=== PATIENT | female | born 1980 | race Hispanic/Latino ===

== ENCOUNTER 2018-10-02 10:17 | Emergency (ER) | payer BC, SELFPAY ==
--- NOTE | 2018-10-02 11:23 | EDPHYS ---
Physician Documentation [facility] Name: Gracie Kinney Age: 38 yrs Sex: Female : 1980 Arrival Date: 10/02/2018 Time: 10:20 Bed Treatment Private MD: Jenn Weber ED Physician Melyssa Myrick HPI: 10/02 11:20 This 38 yrs old Female presents to ER via Ambulatory with complaints of ma2 Abscess. 11:20 The patient presents with cellulitis of the buttocks. Onset: The symptoms/episode ma2 began/occurred gradually, 2 day(s) ago. Associated signs and symptoms: Pertinent negatives: erythema, fever, nausea, swelling, vomiting. Severity of symptoms: At their worst the symptoms were mild, in the emergency department the symptoms are unchanged. The patient has not experienced similar symptoms in the past. 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 - Social history:: Smoking status: Patient/guardian denies using tobacco, Patient/guardian denies using alcohol, street drugs, The patient lives with family. - Ebola Screening: : Patient denies exposure to infectious person Patient denies travel to an Ebola-affected area in the 21 days before illness onset. - Family history:: not pertinent, pertinent for. ROS: 11:20 Constitutional: Negative for fever, chills, and weight loss, Cardiovascular: Negative ma2 for chest pain, palpitations, and edema, Respiratory: Negative for shortness of breath, cough, wheezing, and pleuritic chest pain. 11:20 Skin: Positive for erythema, Negative for burn, diaphoresis, swelling. 11:20 All other systems are negative. Exam: 11:20 Constitutional: This is a well developed, well nourished patient who is awake, alert, ma2 and in no acute distress. 11:20 Chest/axilla: Normal chest wall appearance and motion. Nontender with no deformity. No lesions are appreciated. Cardiovascular: Regular rate and rhythm with a normal S1 and S2. No gallops, murmurs, or rubs. Normal PMI, no JVD. No pulse deficits. Respiratory: Lungs have equal breath sounds bilaterally, clear to auscultation and percussion. No rales, rhonchi or wheezes noted. No increased work of breathing, no retractions or nasal flaring. Abdomen/GI: Soft, non-tender, with normal bowel sounds. No distension or tympany. No guarding or rebound. No evidence of tenderness throughout. MS/ Extremity: Pulses equal, no cyanosis. Neurovascular intact. Full, normal range of motion. 11:20 Skin: cellulitis, that is moderate. Vital Signs: 10:47 BP 123 / 69; Pulse 75; Resp 15; Temp 97.6(TE); Pulse Ox 100% on R/A; Weight 74.84 kg; ss Height 5 ft. 3 in. (160.02 cm); Pain 5/10; 10:47 Body Mass Index 29.23 (74.84 kg, 160.02 cm) ss MDM: 11:08 Patient medically screened. ma2 11:20 Differential diagnosis: cellulitis, insect bite. Data reviewed: vital signs, nurses ma2 notes. Counseling: I had a detailed discussion with the patient and/or guardian regarding: the historical points, exam findings, and any diagnostic results supporting the discharge/admit diagnosis, the presence of at least one elevated blood pressure reading (>120/80) during this emergency department visit, the need for outpatient follow up. Response to treatment: the patient's symptoms have mildly improved after treatment. Administered Medications: No medications were administered Disposition: 10/02/18 11:22 Discharged to Home. Impression: Cellulitis of buttock. - Condition is Stable. - Discharge Instructions: Cellulitis, Adult. - Prescriptions for Clindamycin HCl 300 mg Oral Capsule - take 1 capsule by ORAL route every 6 hours for 10 days; 40 capsule. Bactrim DS 800- 160 mg Oral Tablet - take 1 tablet by ORAL route every 12 hours for 10 days; 20 tablet. - Medication Reconciliation Form, Thank You Letter, Antibiotic Education, Prescription Opioid Use form. - Follow up: Private Physician; When: Tomorrow; Reason: Continuance of care. Signatures: Cynthia Butts RN RN Melyssa Myrick MD MD ma2 Corrections: (The following items were deleted from the chart) 11:41 11:22 10/02/2018 11:22 Discharged to Home. Impression: Cellulitis of buttock. Condition ss is Stable. Forms are Medication Reconciliation Form, Thank You Letter, Antibiotic Education, Prescription Opioid Use. Follow up: Private Physician; When: Tomorrow; Reason: Continuance of care. ma2
--- NOTE | 2018-10-02 11:23 | ER ---
Nurse's Notes [facility] Name: Gracie Kinney Age: 38 yrs Sex: Female : 1980 Arrival Date: 10/02/2018 Time: 10:20 Bed Treatment Private MD: Jenn Weber Diagnosis: Cellulitis of buttock Presentation: 10/02 10:46 Presenting complaint: Patient states: abscess to coccyx area that began 2-3 days ago. ss Pt also c/o pain to L groin that began last night. Transition of care: patient was not received from another setting of care. Onset of symptoms was September 30, 2018. Risk Assessment: Do you want to hurt yourself or someone else? Patient reports no desire to harm self or others. Initial Sepsis Screen: Does the patient meet any 2 criteria? No. Patient's initial sepsis screen is negative. Does the patient have a suspected source of infection? No. Patient's initial sepsis screen is negative. Care prior to arrival: None. 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 - Social history:: Smoking status: Patient/guardian denies using tobacco, Patient/guardian denies using alcohol, street drugs, The patient lives with family. - Ebola Screening: : Patient denies exposure to infectious person Patient denies travel to an Ebola-affected area in the 21 days before illness onset. - Family history:: not pertinent, pertinent for. Screenin:09 Abuse screen: Denies threats or abuse. Denies injuries from another. Nutritional ss screening: No deficits noted. Tuberculosis screening: Never had TB. Fall Risk None identified. Vital Signs: 10:47 BP 123 / 69; Pulse 75; Resp 15; Temp 97.6(TE); Pulse Ox 100% on R/A; Weight 74.84 kg; ss Height 5 ft. 3 in. (160.02 cm); Pain 5/10; 10:47 Body Mass Index 29.23 (74.84 kg, 160.02 cm) ED Course: 10:20 Patient arrived in ED. mr 10:21 Jenn Weber MD is Private Physician. mr 10:47 Triage completed. ss 10:47 Arm band placed on left wrist. ss 11:07 Melyssa Myrick MD is Attending Physician. ma2 11:09 Cynthia Butts, JUAN is Primary Nurse. ss 11:09 Patient has correct armband on for positive identification. Bed in low position. Call ss light in reach. 11:40 No provider procedures requiring assistance completed. Patient did not have IV access ss during this emergency room visit. Administered Medications: No medications were administered Outcome: 11:22 Discharge ordered by . ma2 11:40 Discharged to home ambulatory, with friend. ss 11:40 Condition: good 11:40 Discharge instructions given to patient, family, Instructed on discharge instructions, follow up and referral plans. medication usage, Demonstrated understanding of instructions, follow-up care, medications, Prescriptions given X 2. 11:41 Patient left the ED. Signatures: Angeles Rowan mr Cynthia Butts, RN RN Melyssa Myrick MD MD ma2
[2018-10-02 11:48] VITALS: BP 123/69; TEMP 97.6; O2SAT 100
== END 2018-10-02 11:41 | disposition home or self-care (01) ==
LOC: ER 10:17
DX: L03.317 Cellulitis of buttock (principal)
CPT/HCPCS: 99282

== ENCOUNTER 2018-12-22 18:52 | Emergency (ER) | payer SELFPAY ==
--- OUTSIDE RECORDS SUMMARY | 2018-12-22 18:54 | XMS REPORT ---
:1980 Author Organization eClinicalWorks Care Team Providers Name Role Phone Gus Jenn Provider Role Unavailable Allergies, Adverse Reactions, Alerts Substance Reaction Event Type N.K.D.A. Info Not Available Non Drug Allergy Problems Problem Type Condition Code Onset Dates Condition Status Problem Migraine G43.909 Active Problem Acute left ankle pain M25.572 Active Problem Vitamin D deficiency E55.9 Active Problem Dizziness R42 Active Problem Family history of diabetes mellitus Z83.3 Active Problem Dysuria R30.0 Active Problem Pain in left knee M25.562 Active Problem Left foot pain M79.672 Active Problem Vaginal burning N94.9 Active Problem Other chronic pain G89.29 Active Assessment Family history of diabetes mellitus Z83.3 Active Assessment Dizziness R42 Active Assessment Normal breast exam Z00.00 Active Assessment Routine gynecological examination Z01.419 Active Assessment Dysuria R30.0 Active Assessment Vaginal burning N94.9 Active Problem Cholelithiasis and acute K80.01 Active cholecystitis with obstruction Medications Medication Code Code Instructions Start End Date Status Dosage System Date Diflucan [facility] 44725747871 150 MG Orally June Active as directed tablet once 2018 daily Fluconazole [facility] 64191665140 150 MG Orally Active 1 tablet Amoxicillin-Pot [facility] 94255274268 500-125 MG Active 1 tablet Clavulanate Orally Twice a day x10 days Results Name Result Date Reference Range Unit Abnormality Flag Urine Dip Stick ----Nitrite Negative 20180628 ----Leukocytes Negative 20180628 ----Glucose Negative 20180628 ----Ketone Negative 20180628 ----pH 6.0 20180628 ----SP. Gr 1.010 20180628 ----Appearance Clear [id number] ----Blood Negative 20180628 ----Protein Negative 20180628 HEMOGLOBIN A1C ----A1C 5.5 20180628 GLUCOSE FINGER ----Result 73--RBS [id number] Summary Purpose eClinicalWorks Submission
--- OUTSIDE RECORDS SUMMARY | 2018-12-22 18:54 | XMS REPORT ---
:1980 Author Organization eClinicalWorks Care Team Providers Name Role Phone Jenn Weber Provider Role Unavailable Allergies, Adverse Reactions, Alerts Substance Reaction Event Type N.K.D.A. Info Not Available Non Drug Allergy Problems Problem Type Condition Code Onset Dates Condition Status Problem Cholelithiasis and acute K80.01 Active cholecystitis with obstruction Assessment Well adult exam Z00.00 Active Problem Migraine G43.909 Active Medications Medication Code Code Instructions Start End Status Dosage System Date Date Fluconazole [facility] 50905383630 150 MG Orally Active 1 tablet Amoxicillin-Pot ND 32673061215 500-125 MG Active 1 tablet Clavulanate Orally Twice a day x10 days Results No Known Results Summary Purpose eClinicalWorks Submission
--- OUTSIDE RECORDS SUMMARY | 2018-12-22 18:54 | XMS REPORT ---
:1980 Author Organization eClinicalWorks Care Team Providers Name Role Phone Jenn Weber Provider Role Unavailable Allergies No Known Allergies Problems Problem Type Condition Code Onset Dates Condition Status Problem Migraine G43.909 Active Problem Cholelithiasis and acute K80.01 Active cholecystitis with obstruction Problem Vitamin D deficiency E55.9 Active Assessment Vitamin D deficiency E55.9 Active Medications Medication Code Code Instructions Start End Status Dosage System Date Date Vitamin D [facility] [id number] UNIT September 05, Dec 04, Active 1 capsule (Ergocalcifero Orally Once 2017 2018 l) weekly Results No Known Results Summary Purpose eClinicalWorks Submission
[2018-12-22] MEDS ORDERED: NA CHLORIDE 0.9% 1,000 ML ONE (19:18)
[2018-12-22 19:43] LABS: Absolute Lymphocytes (CBC) 2.3 K/uL (0.7-4.9); Basophils % 2.7 % (0-1.3); Lymphocytes % 24.9 % (15.3-44.8); MPV 10.3 fL (7.6-11.3); RBC Red Blood Cell Count 4.81 M/uL (3.86-4.86)
[2018-12-22 19:59] LABS: Bilirubin Direct 0.1 mg/dL (0-0.2); Bilirubin Total 0.4 mg/dL (0.2-1.0); Potassium 3.6 mmol/L (3.5-5.1); Protein, Total 7.4 g/dL (6.4-8.2)
--- NOTE | 2018-12-22 20:30 | RAD REPORT ---
EXAM DESCRIPTION: CT - Abdomen Pelvis W Contrast - 12/22/2018 8:14 pm CLINICAL HISTORY: Abdominal pain rectal bleeding COMPARISON: none. TECHNIQUE: Computed axial tomography of the abdomen pelvis was obtained. 100 cc Isovue-300 was admin istered intravenously. Oral contrast was not requested which limits evaluation of bowel. All CT scans are performed using dose optimization technique as appropriate and may include automated exposure control or mA/KV adjustment according to patient size. FINDINGS: Cholecystectomy The liver, spleen, pancreas, adrenal and kidneys appear unremarkable. There is no evidence of diverticulitis. A tampon is present within the vagina IMPRESSION: No acute abnormality is displayed.
--- NOTE | 2018-12-22 20:48 | ER ---
Nurse's Notes [facility] Name: Gracie Kinney Age: 38 yrs Sex: Female : 1980 Arrival Date: 12/22/2018 Time: 18:55 Bed 2 Private MD: Diagnosis: Diarrhea, unspecified Presentation: 12/22 19:05 Presenting complaint: Patient states: Reports diarrhea for the past 2 to 3 days, today ea she stated having bright red loose stools, dizziness and nausea. Transition of care: patient was not received from another setting of care. Onset of symptoms was December 22, 2018. Risk Assessment: Do you want to hurt yourself or someone else? Patient reports no desire to harm self or others. Initial Sepsis Screen: Does the patient meet any 2 criteria? No. Patient's initial sepsis screen is negative. Does the patient have a suspected source of infection? No. Patient's initial sepsis screen is negative. Care prior to arrival: Mucinex this AM. 19:05 Method Of Arrival: Ambulatory ea 19:05 Acuity: FLASH 3 ea Triage Assessment: 19:08 General: Appears uncomfortable, Behavior is calm, cooperative, appropriate for age. ea Pain: Denies pain. GI: Reports diarrhea. 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 - Social history:: Smoking status: Patient/guardian denies using tobacco. - Ebola Screening: : No symptoms or risks identified at this time. Screenin:06 Abuse screen: Denies threats or abuse. Nutritional screening: No deficits noted. ea Tuberculosis screening: No symptoms or risk factors identified. Fall Risk None identified. Assessment: 19:24 General: Appears in no apparent distress. Behavior is calm, cooperative, appropriate tl1 for age. Pain:. Neuro: Level of Consciousness is awake, alert, obeys commands, Oriented to person, place, time, situation. Cardiovascular: Denies chest pain. Respiratory: Airway is patent Trachea midline Respiratory effort is even, unlabored, Breath sounds are clear bilaterally. GI: Abdomen is non-distended, Bowel sounds present X 4 quads. Abd is soft and non tender X 4 quads. Reports diarrhea, nausea. : No signs and/or symptoms were reported regarding the genitourinary system. EENT: No signs and/or symptoms were reported regarding the EENT system. Derm: No signs and/or symptoms reported regarding the dermatologic system. 20:05 Reassessment: Patient appears in no apparent distress at this time. Patient is alert, rr5 oriented x 3, equal unlabored respirations, skin warm/dry/pink. send for CT scan assisted by CT staff. 21:06 Reassessment: Patient and/or family updated on plan of care and expected duration. Pain tl1 level reassessed. Patient is alert, oriented x 3, equal unlabored respirations, skin warm/dry/pink. GI: Abdomen is non-distended, Bowel sounds present X 4 quads. Abd is soft and non tender X 4 quads. Vital Signs: 19:07 BP 118 / 81; Pulse 93; Resp 16; Temp 97.6; Pulse Ox 99% ; Weight 74.84 kg; Height 5 ft. ea 2 in. (157.48 cm); Pain 0/10; 20:48 BP 102 / 78; Pulse 86; Resp 16; Pulse Ox 100% ; lt1 19:07 Body Mass Index 30.18 (74.84 kg, 157.48 cm) ea ED Course: 18:55 Patient arrived in ED. rg4 19:06 Triage completed. ea 19:06 Arm band placed on right wrist. Patient placed in an exam room, on a stretcher. ea 19:06 Patient has correct armband on for positive identification. Patient has correct armband tl1 on for positive identification. Placed in gown. Bed in low position. Call light in reach. Side rails up X 1. 19:12 Daron Granda PA is PHCP. sandy 19:12 Joe Lozada MD is Attending Physician. sandy 19:13 Molina Oliva, JUAN is Primary Nurse. rr5 19:26 Initial lab(s) drawn, by me, sent to lab. Inserted saline lock: 20 gauge in right lt1 antecubital area, using aseptic technique. 19:50 Radiology exam delayed due to lab results not completed at this time. (BUN/Creatinine). bq 20:22 CT completed. Patient tolerated procedure well. Patient moved back from CT. bq 20:46 Kelsea Salvador MD is Referral Physician. [facility] 21:07 No provider procedures requiring assistance completed. IV discontinued, intact, tl1 bleeding controlled, No redness/swelling at site. Pressure dressing applied. Administered Medications: 19:20 Drug: NS 0.9% 1000 ml Route: IV; Rate: 1 bolus; Site: right antecubital; tl1 21:00 Follow up: IV Status: Completed infusion; IV Intake: 1000ml tl1 Intake: 21:00 IV: 1000ml; Total: 1000ml. tl1 Outcome: 20:47 Discharge ordered by MD. [facility] 21:06 Discharged to home ambulatory, with family. tl1 21:06 Condition: good 21:06 Discharge instructions given to patient, family, Instructed on discharge instructions, follow up and referral plans. medication usage, Demonstrated understanding of instructions, follow-up care, medications, Prescriptions given X 2. 21:09 Patient left the ED. tl1 Signatures: Daron Granda PA PA [facility] Anyi Zhang Pastora Mccray, RN RN tl1 Aisha Carey rg4 Bhargavi Grace RN RN Molina Hui RN RN rr5 Chani Cruz lt1
--- NOTE | 2018-12-22 20:49 | EDPHYS ---
Physician Documentation [facility] Name: Gracie Kinney Age: 38 yrs Sex: Female : 1980 Arrival Date: 12/22/2018 Time: 18:55 Bed 2 Private MD: ED Physician Joe Lozada HPI: 12/22 19:13 This 38 yrs old Female presents to ER via Ambulatory with complaints of Bloody jmm Stools. 19:13 The patient presents to the emergency department with nausea, diarrhea. Onset: The jmm symptoms/episode began/occurred gradually, 2 day(s) ago. Possible causes: unknown. The symptoms are aggravated by nothing. The symptoms are alleviated by nothing. Associated signs and symptoms: Pertinent negatives: fever. This is a 38 year old female with no chronic medical conditions that presents to the ED with complaints of 2 days of diarrhea today with bloody stools today. Patient states previous history of hemorrhoids. Currently denies abdominal pain. Patient states recently having cough and congestion which is now resolved. . 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 - Social history:: Smoking status: Patient/guardian denies using tobacco. - Ebola Screening: : No symptoms or risks identified at this time. ROS: 19:13 Constitutional: Negative for fever, chills, and weight loss, Cardiovascular: Negative jmm for chest pain, palpitations, and edema, Respiratory: Negative for shortness of breath, cough, wheezing, and pleuritic chest pain. 19:13 Back: Negative for injury and pain, MS/Extremity: Negative for injury and deformity. 19:13 Abdomen/GI: Positive for diarrhea, rectal pain. 19:13 Neuro: Positive for weakness. 19:13 All other systems are negative. Exam: 19:13 Constitutional: This is a well developed, well nourished patient who is awake, alert, jmm and in no acute distress. Head/Face: atraumatic. Eyes: EOMI, no conjunctival erythema appreciated ENT: Moist Mucus Membranes Neck: Trachea midline, Supple Chest/axilla: Normal chest wall appearance and motion. Cardiovascular: Regular rate and rhythm. No edema appreciated Respiratory: Normal respirations, no respiratory distress appreciated 19:13 Back: Normal ROM Skin: General appearance color normal MS/ Extremity: Moves all extremities, no obvious deformities appreciated, no edema noted to the lower extremities Neuro: Awake and alert, normal gait Psych: Behavior is normal, Mood is normal, Patient is cooperative and pleasant 19:13 Abdomen/GI: Inspection: abdomen appears normal, Bowel sounds: normal, Palpation: abdomen is soft and non-tender, in all quadrants. Vital Signs: 19:07 BP 118 / 81; Pulse 93; Resp 16; Temp 97.6; Pulse Ox 99% ; Weight 74.84 kg; Height 5 ft. ea 2 in. (157.48 cm); Pain 0/10; 20:48 BP 102 / 78; Pulse 86; Resp 16; Pulse Ox 100% ; lt1 19:07 Body Mass Index 30.18 (74.84 kg, 157.48 cm) ea MDM: 19:13 Patient medically screened. [facility] 20:43 Data reviewed: vital signs, nurses notes. Counseling: I had a detailed discussion with sandy the patient and/or guardian regarding: the historical points, exam findings, and any diagnostic results supporting the discharge/admit diagnosis, lab results, radiology results, the need for outpatient follow up, to return to the emergency department if symptoms worsen or persist or if there are any questions or concerns that arise at home. ED course: Patient is alert and non toxic in appearance. Abdomen is soft. CT imaging is negative. Patient is advised to follow up with GI and otherwise given strict return precautions. Patient understood and agrees with the plan of care. . 12/22 19:13 Order name: Basic Metabolic Panel [facility] 12/22 19:13 Order name: CBC with Diff [facility] 12/22 19:13 Order name: Creatinine for Radiology [facility] 12/22 19:13 Order name: Hepatic Function [facility] 12/22 19:13 Order name: Lipase [facility] 12/22 19:13 Order name: Type And Screen [facility] 12/22 19:13 Order name: CT Abd/Pelvis - IV Contrast Only [facility] 12/22 19:57 Order name: CBC with Automated Diff; Complete Time: 20:00 [facility] 12/22 19:58 Order name: Creatinine (Radiology Only); Complete Time: 20:00 [facility] 12/22 20:01 Order name: Basic Metabolic Panel; Complete Time: 20:18 [facility] 12/22 20:01 Order name: Liver (Hepatic) Function; Complete Time: 20:18 [facility] 12/22 20:01 Order name: Lipase; Complete Time: 20:18 [facility] 12/22 20:38 Order name: CT; Complete Time: 20:40 [facility] 12/22 20:57 Order name: Type and Screen; Complete Time: 21:44 [facility] 12/22 19:13 Order name: IV Saline Lock; Complete Time: 19:20 [facility] 12/22 19:13 Order name: Labs collected and sent; Complete Time: 19:20 [facility] 12/22 19:13 Order name: Urine Dipstick-Ancillary (obtain specimen); Complete Time: 19:37 [facility] Administered Medications: 19:20 Drug: NS 0.9% 1000 ml Route: IV; Rate: 1 bolus; Site: right antecubital; tl1 21:00 Follow up: IV Status: Completed infusion; IV Intake: 1000ml tl1 Disposition: 23:06 Co-signature as Attending Physician, Joe Lozada MD. rn Disposition: 12/22/18 20:47 Discharged to Home. Impression: Diarrhea, unspecified. - Condition is Stable. - Discharge Instructions: Food Choices to Help Relieve Diarrhea, Adult, Diarrhea, Adult, Rectal Bleeding. - Prescriptions for Zofran ODT 4 mg Oral tablet,disintegrating - place 1 tablet by TRANSLINGUAL route every 4-6 hours; 20 tablet. Bentyl 20 mg Oral Tablet - take 2 tablet by ORAL route every 6 hours As needed; 40 tablet. - Medication Reconciliation Form, Thank You Letter, Antibiotic Education, Prescription Opioid Use form. - Follow up: Kelsea Salvador MD; When: 2 - 3 days; Reason: Recheck today's complaints, Continuance of care, Re-evaluation by your physician. Signatures: Dispatcher [employer] [facility] Daron Granda PA PA jmm Nieto, Roman, MD MD rn Lasagna, Tonya, RN RN tl1 Bhargavi Grace RN RN ea Corrections: (The following items were deleted from the chart) 21:09 20:47 12/22/2018 20:47 Discharged to Home. Impression: Diarrhea, unspecified. Condition tl1 is Stable. Forms are Medication Reconciliation Form, Thank You Letter, Antibiotic Education, Prescription Opioid Use. Follow up: Kelsea Salvador; When: 2 - 3 days; Reason: Recheck today's complaints, Continuance of care, Re-evaluation by your physician. sandy
[2018-12-22 22:55] VITALS: TEMP 97.6
[2018-12-22 22:57] VITALS: BP 102/78; O2SAT 100
== END 2018-12-22 21:09 | disposition home or self-care (01) ==
LOC: ER 18:52
DX: R19.7 Diarrhea, unspecified (principal)
CPT/HCPCS: 36415; 74177; 80048; 80076; 83690; 85025; 86850; 86900; 86901; 96360; 96361; 99284; J7030; Q9967

== ENCOUNTER 2020-11-08 18:15 | Emergency (ER) | payer BC ==
--- OUTSIDE RECORDS SUMMARY | 2020-11-08 18:18 | XMS REPORT | Continuity of Care Document ---
:1980 Author Organization [facility] t Address [address] [place] [place] [address] Care Team Providers Name Role Phone Lab, Fam Pob I Attending Clinician Unavailable Baldo NGUYENP Attending Clinician Problems This patient has no known problems. Allergies, Adverse Reactions, Alerts This patient has no known allergies or adverse reactions. Medications Ordered Filled Start Stop Current Ordering Indication Dosage Frequency Signature Comments Components Source Medication Medication Date Date Medication? Clinician (SIG) Name Name Sai Gibbs 2019- No Jenn as [facility] 3-21 03-24 [facility] Fluconazole Fluconazole Yes Jenn [address] [facility] Amoxicillin Amoxicillin Yes Jenn [address] [facility] -Pot -Pot [facility] Clavulanate Clavulanate [facility] Procedures This patient has no known procedures. Encounters Start End Encounter Admission Attending Care Care Encounter Source Date/Time Date/Time Type Type Clinicians Facility Department ID 2020-09-15 2020-09-15 Outpatient [facility] [id number] [facility] 2020-09-14 2020-09-14 Laboratory Lab, [facility] [id number] 09:14:03 09:34:03 Only Fam Pob I Health [id number] [place] [id number] Professio [phone] [place] [address] [address] 2020-06-28 2020-06-28 Outpatient [facility] [id number] [facility] 2020-06-16 2020-06-16 Outpatient [facility] [id number] [facility] 2020-06-12 2020-06-12 Outpatient [facility] [id number] [facility] 2020-05-20 2020-05-20 Outpatient [facility] [id number] [facility] 2020-05-19 2020-05-19 Outpatient [facility] [id number] [facility] 2020-05-03 2020-05-03 Laboratory Lab, [facility] [id number] 17:05:29 17:25:29 Only Fam Pob I Health [id number] [place] [id number] Professio [phone] [place] [address] [address] 2020-04-29 2020-04-29 Outpatient [facility] [id number] [facility] 2020-04-23 2020-04-23 Outpatient [facility] [id number] [facility] 2020-04-22 2020-04-22 Manager Play Lab, [facility] [id number] 10:32:26 10:52:26 Visit Fam Pob I Health [id number] [place] [id number] Professio [phone] [place] [address] [address] 2020-04-18 2020-04-18 Laboratory Lab, [facility] [id number] 18:27:17 18:47:17 Only Fam Pob I Health [id number] [place] [id number] Professio [phone] [place] [address] [address] 2020-04-15 2020-04-15 Outpatient [facility] [id number] [facility] 2020-04-14 2020-04-14 Outpatient [facility] [id number] [facility] 2020-04-14 2020-04-14 Outpatient [facility] [id number] [facility] 2020-02-25 2020-02-25 Laboratory Lab, [facility] [id number] 16:45:09 17:05:09 Only Fam Pob I Health [id number] [place] [id number] Professio [phone] [place] [address] [address] 2020-02-03 2020-02-03 Outpatient [facility] [id number] [facility] 2020 2020 Outpatient [facility] [id number] [facility] 2019-10-21 2019-10-21 RIAN Quintero [id number] 00:00:00 00:00:00 Inge BRIGHT [id number] [facility] [id number] [id number] 2019-10-18 2019-10-18 Laboratory Lab, [facility] [place] [id number] 14:38:20 14:58:20 Only Fam Pob I Health [id number] [place] [id number] [facility] [phone] [place] [address] 2018-06-28 2018-06-28 Outpatient Juvenal Bernal [id number] 13:15:00 13:15:00 [facility] 2017-09-05 2017-09-05 Outpatient Juvenal Bernal [id number] [facility] 07:47:00 07:47:00 [facility] 2017-08-29 2017-08-29 Outpatient Juvenal Bernal [id number] 14:30:00 14:30:00 [facility] Results This patient has no known results.
--- NOTE | 2020-11-08 21:21 | ER ---
Nurse's Notes [facility] Name: Gracie Kinney Age: 40 yrs Sex: Female : 1980 Arrival Date: 11/08/2020 Time: 18:19 Bed DIS2 Private MD: Diagnosis: Urticaria, unspecified Presentation: 11/08 18:31 Chief complaint: Patient states: Rash/hives with itching all over since Monday. No ll1 known specific allergens. Coronavirus screen: Client denies travel out of the [place] in the last 14 days. At this time, the client does not indicate any symptoms associated with coronavirus-19. Ebola Screen: Patient denies travel to an Ebola-affected area in the 21 days before illness onset. Onset: The symptoms/episode began/occurred 2 day(s) ago. Anaphylaxis evaluation, no signs or symptoms of anaphylaxis were noted. Initial Sepsis Screen: Does the patient meet any 2 criteria? No. Patient's initial sepsis screen is negative. Does the patient have a suspected source of infection? No. Patient's initial sepsis screen is negative. Risk Assessment: Do you want to hurt yourself or someone else? Patient reports no desire to harm self or others. Onset of symptoms was November 06, 2020. 18:31 Method Of Arrival: Ambulatory 1 18:31 Acuity: FLASH 4 ll1 Historical: - Allergies: 18:33 "migraine medication"; ll1 - PMHx: 18:33 None; ll1 - PSHx: 18:33 tubal ligation; Cholecystectomy; ll1 - Immunization history:: Client reports having NOT received the Covid vaccine. Flu vaccine is not up to date. - Social history:: Smoking status: Patient denies any tobacco usage or history of. Screenin:00 Abuse screen: Denies threats or abuse. Nutritional screening: No deficits noted. em Tuberculosis screening: No symptoms or risk factors identified. Fall Risk None identified. Assessment: 20:07 General: Appears in no apparent distress. comfortable, Behavior is calm, cooperative, em appropriate for age, Denies fever. Pain: Complains of pain in right arm, left arm, base of the skull and back of neck Pain began 2-3 days ago. Neuro: Level of Consciousness is awake, alert, obeys commands, Oriented to person, place, time, situation. Cardiovascular: Capillary refill < 3 seconds Patient's skin is warm and dry. Respiratory: Airway is patent Respiratory effort is even, unlabored, Respiratory pattern is regular, symmetrical, Denies shortness of breath labored breathing. Derm: Rash noted that is itchy, urticaria, on right arm, left arm, base of the skull and back of neck. Musculoskeletal: Capillary refill < 3 seconds, Range of motion: intact in all extremities. Vital Signs: 18:31 BP 112 / 79; Pulse 84; Resp 17; Temp 98.1; Pulse Ox 100% ; Weight 79.38 kg; Height 5 ll1 ft. 3 in. (160.02 cm); Pain 3/10; 21:26 BP 104 / 65; Pulse 74; Resp 16; Pulse Ox 98% on R/A; ak2 18:31 Body Mass Index 31.00 (79.38 kg, 160.02 cm) 1 ED Course: 18:19 Patient arrived in ED. ds1 18:32 Triage completed. ll1 18:34 Arm band placed on. 1 19:27 Daron Granda PA is PHCP. [facility] 19:27 Joe Lozada MD is Attending Physician. [facility] 19:55 Tommy Barnes, RN is Primary Nurse. em 20:00 Patient has correct armband on for positive identification. em 21:26 Patient did not have IV access during this emergency room visit. ak2 Administered Medications: No medications were administered Outcome: 21:21 Discharge ordered by . [facility] 21:26 Discharged to home ambulatory. ak2 21:26 Condition: good 21:26 Discharge instructions given to patient. 21:27 Patient left the ED. ak2 Signatures: Daron Granda PA PA Tommy Lobato, RN RN Daniela Bloom ds1 Ivanna Meng RN RN [facility] Sergo Coto ak2
--- NOTE | 2020-11-08 21:22 | EDPHYS ---
Physician Documentation [facility] Name: Gracie Kinney Age: 40 yrs Sex: Female : 1980 Arrival Date: 11/08/2020 Time: 18:19 Bed DIS2 Private MD: ED Physician Joe Lozada HPI: 11/08 21:11 This 40 yrs old Female presents to ER via Ambulatory with complaints of Hives. [facility] 21:11 The patient's rash thought to be caused by an unknown cause. The rash is located on the m body diffusely. The rash can be described as hives. Onset: The symptoms/episode began/occurred gradually. Associated signs and symptoms: Pertinent positives: swelling of lips, Pertinent negatives: fever, swelling of throat, swelling of tongue, vomiting, wheezing. Is a 40-year-old female with no chronic conditions as above presents to the ED with complaints of hives to the body. Patient states this has been occurring after eating for the past month. Is unsure of which trigger. Historical: - Allergies: 18:33 "migraine medication"; ll1 - PMHx: 18:33 None; ll1 - PSHx: 18:33 tubal ligation; Cholecystectomy; ll1 - Immunization history:: Client reports having NOT received the Covid vaccine. Flu vaccine is not up to date. - Social history:: Smoking status: Patient denies any tobacco usage or history of. ROS: 21:11 Constitutional: Negative for fever, chills, and weight loss, Cardiovascular: Negative jmm for chest pain, palpitations, and edema, Respiratory: Negative for shortness of breath, cough, wheezing, and pleuritic chest pain. 21:11 Skin: Positive for rash. 21:11 All other systems are negative. Exam: 21:11 Constitutional: This is a well developed, well nourished patient who is awake, alert, jmm and in no acute distress. Head/Face: atraumatic. Eyes: EOMI, no conjunctival erythema appreciated ENT: Moist Mucus Membranes Neck: Trachea midline, Supple Chest/axilla: Normal chest wall appearance and motion. Cardiovascular: Regular rate and rhythm. No edema appreciated Respiratory: Normal respirations, no respiratory distress appreciated Abdomen/GI: Non distended, soft Back: Normal ROM 21:11 MS/ Extremity: Moves all extremities, no obvious deformities appreciated, no edema noted to the lower extremities Neuro: Awake and alert, normal gait Psych: Behavior is normal, Mood is normal, Patient is cooperative and pleasant 21:11 ENT: Posterior pharynx: is normal, swelling, is not appreciated. 21:11 Skin: Urticaria noted no urticaria noted to the back. Vital Signs: 18:31 BP 112 / 79; Pulse 84; Resp 17; Temp 98.1; Pulse Ox 100% ; Weight 79.38 kg; Height 5 ll1 ft. 3 in. (160.02 cm); Pain 3/10; 21:26 BP 104 / 65; Pulse 74; Resp 16; Pulse Ox 98% on R/A; ak2 18:31 Body Mass Index 31.00 (79.38 kg, 160.02 cm) ll1 MDM: 20:57 Patient medically screened. [facility] 21:17 Data reviewed: vital signs, nurses notes. Counseling: I had a detailed discussion with [facility] the patient and/or guardian regarding: the historical points, exam findings, and any diagnostic results supporting the discharge/admit diagnosis, the need for outpatient follow up, to return to the emergency department if symptoms worsen or persist or if there are any questions or concerns that arise at home. ED course: Patient is alert nontoxic patient is alert and nontoxic in appearance in the ED. patient does not have any pharyngeal edema. I do not suspect anaphylaxis. Patient is advised to follow-up with PCP and otherwise given strict return precautions.. Administered Medications: No medications were administered Disposition Summary: 11/08/20 21:21 Discharge Ordered Location: Home [facility] Condition: Stable [facility] Diagnosis - Urticaria, unspecified [facility] Followup: [facility] - With: Private Physician - When: 2 - 3 days - Reason: Recheck today's complaints, Continuance of care, Re-evaluation by your physician Discharge Instructions: - Discharge Summary Sheet sandy Lorenzo [facility] Forms: - Medication Reconciliation Form [facility] - Thank You Letter [facility] - Antibiotic Education [facility] - Prescription Opioid Use [facility] Prescriptions: - Hydroxyzine HCl 25 mg Oral Tablet - take 1 tablet by ORAL route every 6 hours As needed; 30 tablet; Refills: 0, [facility] Product Selection Permitted - Pepcid 20 mg Oral Tablet - take 1 tablet by ORAL route every 12 hours for 10 days; 20 tablet; Refills: 0, [facility] Product Selection Permitted - Prednisone 20 mg Oral Tablet - take 3 tablets by ORAL route once daily for 5 days; 15 tablet; Refills: 0, sandy Product Selection Permitted Signatures: Daron Granda PA PA jmm Lewis, Lynsay, RN RN ll1
[2020-11-08 21:32] VITALS: TEMP 98.1
[2020-11-08 21:33] VITALS: BP 104/65; O2SAT 98
== END 2020-11-08 21:27 | disposition home or self-care (01) ==
LOC: ER 18:15
DX: L50.9 Urticaria, unspecified (principal)

== ENCOUNTER 2021-06-28 18:42 | Emergency (ER) | payer BC ==
--- NOTE | 2021-06-28 20:29 | RAD REPORT ---
EXAM DESCRIPTION: CT - [id number] - 06/28/2021 8:10 pm CLINICAL HISTORY: Trauma, head and neck injury. Radiculopathy;Pain COMPARISON: Chest Pa And Lat (2 Views) dated 02/18/2021No comparisons TECHNIQUE: Axial 5 mm thick images of the head were obtained. Axial 2 mm thick images of the cervical spine were obtained with sagittal and coronal reconstruction images generated and reviewed. All CT scans are performed using dose optimization technique as appropriate and may include automated exposure control or mA/KV adjustment according to patient size. FINDINGS: CT HEAD WITHOUT CONTRAST: No acute hemorrhage, hydrocephalus or extra-axial collection is identified.No areas of brain edema or midline shift. The paranasal sinuses and mastoids are clear.The calvarium is intact. CT CERVICAL SPINE WITHOUT CONTRAST: No fracture or subluxation.Mild spondylosis C5-6.No prevertebral soft tissues swelling is identified. IMPRESSION: No acute intracranial or cervical spine findings.
[2021-06-28] MEDS ORDERED: LIDOCAINE 4% PATCH ONE (20:39)
[2021-06-28] MEDS ORDERED: CYCLOBENZAPRINE 10 MG TAB ONE (20:39)
[2021-06-28] MEDS ORDERED: KETOROLAC 30 MG/ML INJ ONE (20:39)
--- NOTE | 2021-06-28 21:16 | ER ---
Nurse's Notes [facility] Name: Gracie Kinney Age: 41 yrs Sex: Female : 1980 Arrival Date: 06/28/2021 Time: 18:45 Bed 16 Private MD: Diagnosis: Radiculopathy, cervical region Presentation: 06/28 18:49 Chief complaint: Patient states: intermittent rene arm numbness that began 2 weeks ago. aa5 Pt states "my spine has been hurting" (pt points to mid back). Coronavirus screen: At this time, the client does not indicate any symptoms associated with coronavirus-19. Ebola Screen: No symptoms or risks identified at this time. Initial Sepsis Screen: Does the patient meet any 2 criteria? No. Patient's initial sepsis screen is negative. Does the patient have a suspected source of infection? No. Patient's initial sepsis screen is negative. Risk Assessment: Do you want to hurt yourself or someone else? Patient reports no desire to harm self or others. Onset of symptoms was June 2021. 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 - Social history:: Smoking status: Patient denies any tobacco usage or history of. Screenin:05 Abuse screen: Denies threats or abuse. Denies injuries from another. Nutritional ab2 screening: No deficits noted. Tuberculosis screening: No symptoms or risk factors identified. Fall Risk None identified. Assessment: 21:03 General: Appears in no apparent distress. comfortable, Behavior is calm, cooperative, ab2 appropriate for age. Pain: Complains of pain in head Pain does not radiate. Neuro: Level of Consciousness is awake, alert, obeys commands, Oriented to person, place, time, situation, Appropriate for age Blow Molding Machine Operator are equal bilaterally Moves all extremities. Gait is steady, Speech is normal, Facial symmetry appears normal, Reports headache numbness. Cardiovascular: No deficits noted. Denies chest pain, shortness of breath, Heart tones S1 S2 present Patient's skin is warm and dry. Respiratory: No deficits noted. Airway is patent Respiratory effort is even, unlabored, Respiratory pattern is regular, symmetrical. GI: No deficits noted. No signs and/or symptoms were reported involving the gastrointestinal system. Abdomen is round non-distended, Bowel sounds present X 4 quads. : No deficits noted. No signs and/or symptoms were reported regarding the genitourinary system. EENT: No deficits noted. No signs and/or symptoms were reported regarding the EENT system. Derm: No deficits noted. Skin is intact, is healthy with good turgor, Skin is pink, warm \\T\\ dry. Musculoskeletal: No deficits noted. No signs and/or symptoms reported regarding the musculoskeletal system. Vital Signs: 18:49 BP 124 / 81; Pulse 84; Resp 18 S; Temp 97.0(TE); Pulse Ox 100% on R/A; Weight 79.38 kg aa5 (R); Height 5 ft. 3 in. (160.02 cm) (R); 21:06 BP 109 / 69; Pulse 81; Resp 17; Pulse Ox 99% on R/A; ab2 18:49 Body Mass Index 31.00 (79.38 kg, 160.02 cm) aa5 ED Course: 18:45 Patient arrived in ED. ds1 18:49 Arm band placed on. aa5 18:50 Triage completed. aa5 19:26 Jac Esquivel NP is PHCP. pm1 19:26 Misael Avina MD is Attending Physician. pm1 20:09 CT Head C Spine In Process Unspecified. EDMS 20:57 Vj Osborne is Primary Nurse. ab2 21:05 Patient has correct armband on for positive identification. Bed in low position. Call ab2 light in reach. Side rails up X2. 21:05 No provider procedures requiring assistance completed. ab2 21:34 Patient did not have IV access during this emergency room visit. ke1 Administered Medications: 20:47 Drug: Ketorolac 60 mg Route: IM; Site: left deltoid; ke1 21:05 Follow up: Response: No adverse reaction ab2 20:47 Drug: Flexeril (cyclobenzaprine) 10 mg Route: PO; ke1 21:05 Follow up: Response: No adverse reaction ab2 20:48 Drug: Lidoderm Patch 5 % (700 mg/patch) 1 patches Route: Topical; Site: affected area; ke1 21:05 Follow up: Response: No adverse reaction ab2 Outcome: 21:16 Discharge ordered by . pm1 21:34 Discharged to home ambulatory. ke1 21:34 Condition: good 21:34 Discharge instructions given to patient. 21:34 Patient left the ED. ke1 Signatures: Dispatcher [employer] EDNJ Daniela Schulz ds1 Macie Su RN RN aa5 Jac Esquivel, HAND BINDER CUTTER HAND BINDER CUTTER pm1 Vj Osborne ab2 Josh Tejada RN RN ke1 Corrections: (The following items were deleted from the chart) 18:51 18:49 Chief complaint: Patient states: intermittent rene arm numbness that began 2 weeks aa5 ago. Pt states "my spine has been hurting" aa5
--- NOTE | 2021-06-28 21:17 | EDPHYS ---
Physician Documentation [facility] Name: Gracie Kinney Age: 41 yrs Sex: Female : 1980 Arrival Date: 06/28/2021 Time: 18:45 Bed 16 Private MD: ED Physician Misael Avina HPI: 06/28 19:42 This 41 yrs old Female presents to ER via Ambulatory with complaints of pm1 Numbness Of Arm. 19:42 The patient or guardian complains of numbness. The complaints affect the right and left pm1 upper extermities. Context: The problem was sustained at an unknown location, resulted from unknown cause. Onset: The symptoms/episode began/occurred 2 week(s) ago. Treatment prior to arrival includes: no previous treatment. Modifying factors: The symptoms are alleviated by nothing. the symptoms are aggravated by nothing. Associated signs and symptoms: Pertinent positives: Neck pain and low back pain. Severity of symptoms: in the emergency department the symptoms are unchanged. The patient has not experienced similar symptoms in the past. The patient has not recently seen a physician. Patient reports on and off left and right upper extremity numbness. No weakness present. Left and right upper extremity numbness appears to alternate. Patient also reporting lower neck pain, and low back pain. Patient attributes pain to poor posture while at work. 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 - Social history:: Smoking status: Patient denies any tobacco usage or history of. ROS: 19:42 Constitutional: Negative for fever, chills, and weight loss. pm1 19:42 Cardiovascular: Negative for chest pain, palpitations, and edema, Respiratory: Negative for shortness of breath, cough, wheezing, and pleuritic chest pain, Abdomen/GI: Negative for abdominal pain, nausea, vomiting, diarrhea, and constipation. 19:42 : Negative for injury, bleeding, discharge, and swelling, MS/Extremity: Negative for injury and deformity, Skin: Negative for injury, rash, and discoloration, Neuro: Negative for headache, weakness, numbness, tingling, and seizure. 19:42 Neck: Positive for pain at rest. 19:42 Back: Positive for of the lumbar area, Pain. 19:42 All other systems are negative. Exam: 19:42 Constitutional: This is a well developed, well nourished patient who is awake, alert, pm1 and in no acute distress. Head/Face: Normocephalic, atraumatic. 19:42 Skin: Warm, dry with normal turgor. Normal color with no rashes, no lesions, and no evidence of cellulitis. MS/ Extremity: Pulses equal, no cyanosis. Neurovascular intact. Full, normal range of motion. 19:42 Neck: Exam negative for acute changes, External neck: tenderness, that is mild, of the left trapezius and right trapezius, C-spine: vertebral tenderness, is not appreciated, ROM/movement: no acute changes. 19:42 Cardiovascular: Exam negative for acute changes, Rate: normal, Rhythm: regular, Pulses: no pulse deficits are appreciated. 19:42 Respiratory: Exam negative for acute changes, respiratory distress, shortness of breath. 19:42 Back: pain, is absent, of the thoracic area and lumbar area, normal spinal alignment noted. 19:42 Neuro: Exam negative for acute changes, Orientation: is normal, Mentation: is normal, Motor: is normal, moves all fours. Vital Signs: 18:49 BP 124 / 81; Pulse 84; Resp 18 S; Temp 97.0(TE); Pulse Ox 100% on R/A; Weight 79.38 kg aa5 (R); Height 5 ft. 3 in. (160.02 cm) (R); 21:06 BP 109 / 69; Pulse 81; Resp 17; Pulse Ox 99% on R/A; ab2 18:49 Body Mass Index 31.00 (79.38 kg, 160.02 cm) aa5 MDM: 19:42 Patient medically screened. pm1 21:15 Data reviewed: vital signs. Data interpreted: Pulse oximetry: on room air is 99 %. pm1 Interpretation: normal. 21:15 Counseling: I had a detailed discussion with the patient and/or guardian regarding: the pm1 historical points, exam findings, and any diagnostic results supporting the discharge/admit diagnosis, radiology results, the need for outpatient follow up, a family practitioner, to return to the emergency department if symptoms worsen or persist or if there are any questions or concerns that arise at home. 06/28 19:40 Order name: CT Head C Spine; Complete Time: 20:32 pm1 Administered Medications: 20:47 Drug: Ketorolac 60 mg Route: IM; Site: left deltoid; ke1 21:05 Follow up: Response: No adverse reaction ab2 20:47 Drug: Flexeril (cyclobenzaprine) 10 mg Route: PO; ke1 21:05 Follow up: Response: No adverse reaction ab2 20:48 Drug: Lidoderm Patch 5 % (700 mg/patch) 1 patches Route: Topical; Site: affected area; ke1 21:05 Follow up: Response: No adverse reaction ab2 Disposition Summary: 06/28/21 21:16 Discharge Ordered Location: Home pm1 Problem: new pm1 Symptoms: have improved pm1 Condition: Stable pm1 Diagnosis - Radiculopathy, cervical region pm1 Followup: pm1 - With: Emergency Department - When: As needed - Reason: Worsening of condition Followup: pm1 - With: Private Physician - When: 2 - 3 days - Reason: Recheck today's complaints, Continuance of care, Re-evaluation by your physician Discharge Instructions: - Discharge Summary Sheet pm1 - Cervical Radiculopathy pm1 Forms: - Medication Reconciliation Form pm1 - Thank You Letter pm1 - Antibiotic Education pm1 - Prescription Opioid Use pm1 Prescriptions: - Cyclobenzaprine 10 mg Oral Tablet - take 1 tablet by ORAL route every 8 hours As needed; 30 tablet; Refills: 0, pm1 Product Selection Permitted - Diclofenac Sodium 75 mg Oral tablet,delayed release (DR/EC) - take 1 tablet by ORAL route 2 times per day As needed; 30 tablet; Refills: 0, pm1 Product Selection Permitted - Lidoderm 5 % Topical adhesive patch,medicated - apply 1 patch by TRANSDERMAL route once daily As needed 12 hours on and 12 pm1 hours off in a 24-hour.; 10 patch; Refills: 0, Product Selection Permitted Addendum: 06/30/2021 07:04 Co-signature as Attending Physician, Misael Avina MD I agree with the assessment and c bedolla plan of care. Signatures: Dispatcher [employer] EDMisael Martinez MD MD cha Calderon, Audri RN RN aa5 Jac Esquivel, BALL THREAD MACHINE TENDER BALL THREAD MACHINE TENDER pm1 Josh Tejada, RN RN ke1 Vj Osborne2
[2021-06-28 21:46] VITALS: TEMP 97
[2021-06-28 21:47] VITALS: BP 109/69; O2SAT 99
--- OUTSIDE RECORDS SUMMARY | 2021-06-29 00:28 | XMS REPORT | Continuity of Care Document ---
:1980 Author Organization [facility] t Address [address] [place] [address] Care Team Providers Name Role Phone PCP, DOES NOT HAVE A Primary Care Physician Unavailable Vicenta Woo Attending Clinician Unavailable Gus Attending Clinician Unavailable Only, Test Attending Clinician Unavailable Anitha SUMMERS Attending Clinician ANITHA Attending Clinician Unavailable Lab, Fam Pob I Attending Clinician Unavailable OMAGTERRANCEI Attending Clinician Unavailable KHANH Attending Clinician Unavailable ANENE Attending Clinician Unavailable Anene LAB ASSOCIATE Attending Clinician Payers Payer Name Policy Type Policy Number Effective Date Expiration Date S ource Problems Condition Condition Condition Status Onset Resolution Last Treating Co mments Source Name Details Category Date Date Treatment Clinician Date Pelvic Pelvic Disease Active Univers inflammato inflammato 11-06 [place] [facility] H/O tubal H/O tubal Disease Active Uni vers ligation ligation 11-06 ity of 00:00: [address] Contracept Contracept Disease Active U nivers camilla camilla 6-24 [place] of management [place] [facility] UTI UTI Disease Active Univers symptoms symptoms 6-08 ity of 00:00: [address] S/P tubal S/P tubal Disease Active Uni vers ligation ligation 09-15 ity of 00:00: [place] 00 [facility] Allergies, Adverse Reactions, Alerts Allergy Allergy Status Severity Reaction(s) Onset Inactive Treating Comm ents Source Name Type Date Date Clinician NO KNOWN Drug Active Univers ALLERGIE Class [facility] [place] [facility] Social History Social Habit Start Date Stop Date Quantity Comments Source History SDMS [facility] [place] Alcohol Frequency Medical Branch History SDMS [facility] [place] Alcohol Std Drinks Medica l Branch History SDMS [facility] [place] Alcohol Binge Medical Bra [facility] Alcohol intake 2015-11-07 2015-11-07 0 /d [facility] 00:00:00 00:00:00 Medical Branch Alcohol Comment 2015-09-16 2015-09-16 socially [facility] 00:00:00 00:00:00 Medical Branch Sex Ass[birth year] [facility] 00:00:00 00:00:00 [facility] Smoking Status Start Date Stop Date Source Never smoker [facility] Medications Ordered Filled Start Stop Current Ordering Indication Dosage Frequency Signature Comments Components Source Medication Medication Date Date Medication? Clinician (SIG) Name Name Sai Lawlucan 2019- No Jenn as [facility] 3-21 03-24 [facility] azithromyci Yes [id number] 500mg Take 1 Univers n 7-29 tablet by ity of (ZITHROMAX) 00:00: mouth [place] 500 mg 00 daily. Medical tablet Branch Fluconazole Fluconazole Yes Jenn [address] [facility] Amoxicillin Amoxicillin Yes Jenn [address] [facility] -Pot -Pot [facility] Clavulanate Clavulanate [facility] Procedures This patient has no known procedures. Encounters Start End Encounter Admission Attending Care Care Encounter Source Date/Time Date/Time Type Type Clinicians Facility Department ID 2021-05-05 Outpatient Kendal Woo [facility] [id number] [facility] [address] 14:01:40 [id number] [facility] 2021-05-05 Outpatient Kendal Woo [facility] [id number] [facility] 13:39:08 [id number] [facility] 2021-05-05 Outpatient Woo, Na [facility] [id number] [facility] 13[facility]11:32 [id number] [facility] 2021-05-05 Outpatient Woo, Na STLMLC STL[facility] [id number] [facility] 13:05:16 [id number] [facility] 2021-05-05 Outpatient Woo, Na STLMLC STL[facility] [id number] [facility] [address] 12:37:00 [id number] [facility] 2021-05-05 Outpatient Woo, Na STLMLC STLMLC [id number] [facility] [address] 12:36:25 [id number] [facility] 2021-05-05 Outpatient Woo, Na STLMLC STL[facility]C [id number] [facility] 12:27:26 [id number] [facility] 2021-05-05 Outpatient Woo, Na STLMLC STL[facility]C [id number] 12:17:50 [id number] [facility] 2021-05-05 Outpatient STLMLC STL[facility]C [id number] [facility] 12:17:29 [id number] [facility] 2021-05-05 Outpatient Gus, [facility]LMLC [facility] [id number] 11:53:48 Jenn [id number] [facility] 2021-04-09 2021-04-09 Laboratory Only, Adc Test [facility] [id number] [facility] 12:00:00 12:15:00 Only [id number] [id number] [facility] [id number] [address] 2021-04-09 2021-04-09 Outpatient R [facility] [id number] Univers 12:00:00 12:00:00 [id number] ity [facility] 2021-04-09 2021-04-09 Outpatient R ANITHA [facility] [id number] Univers 12:00:00 12:00:00 JC [facility] 2020-12-10 2020-12-10 Outpatient [facility]MLC [facility] [id number] [facility] 2020-11-25 2020-11-25 Outpatient [facility]LMLC [facility] [id number] [facility] 2020-11-25 2020-11-25 Outpatient [facility]MLC [facility] [id number] [facility] 2020-09-15 2020-09-15 Outpatient [facility]LMLC [facility] [id number] [facility] 2020-09-14 2020-09-14 Laboratory Lab, [facility] [id number] 09:14:03 09:34:03 Only Fam [facility] [id number] [place] [id number] Professio [phone] nal [address] 2020-09-14 2020-09-14 Outpatient R [facility] [id number] Univers 09:00:00 09:00:00 [id number] [facility] 2020-09-14 2020-09-14 Outpatient R MARIANGEL [facility] [id number] Univers 09:00:00 09:00:00 OMBRUNOI [facility] 2020-09-13 2020-09-13 Outpatient R [facility] [id number] Univers 12:40:00 12:40:00 [id number] [facility] 2020-09-13 2020-09-13 Outpatient R KHANH [facility] [id number] Univers 12:40:00 [facility]40[facility] 2020-06-28 2020-06-28 Outpatient [facility] [id number] [facility] 2020-06-16 2020-06-16 Outpatient [facility]LMLC [facility] [id number] [facility] 2020-06-12 2020-06-12 Outpatient STLMLC [facility] [id number] [facility] 2020-05-20 2020-05-20 Outpatient [facility]MLC [facility] [id number] [facility] 2020-05-19 2020-05-19 Outpatient [facility] [id number] [facility] 2020-05-03 2020-05-03 Laboratory Lab, [facility] [id number] 17:05:29 17:25:29 Only [facility]am [facility] [id number] [place] [id number] Professio [phone] nal 0[address] 2020-05-03 2020-05-03 Outpatient R [facility] [id number] Univers 17:00:00 17:00:00 [id number] [facility] 2020-05-03 2020-05-03 Outpatient R KHANH, [facility] [id number] Univers 17:00:00 17:00:00 DEBBY [facility] 2020-04-29 2020-04-29 Outpatient [facility] [id number] [facility] 2020-04-23 2020-04-23 Outpatient [facility] [id number] [facility] 2020-04-22 2020-04-22 Sustainability Coordinator Lab, [facility] [id number] 10:32:26 10:52:26 Visit Fam [facility] [id number] [place] [id number] Professio [phone] nal 044 [address] [facility] 2020-04-22 2020-04-22 Outpatient R [facility] [id number] Univers 10:20:00 10:20:00 [id number] [facility] 2020-04-22 2020-04-22 Outpatient R UTE [facility] [id number] Univers 10:20:00 10:20:00 INGE [facility] 2020-04-18 2020-04-18 Laboratory Lab, [facility] [id number] 18:27:17 18:47:17 Only Fam [facility] [id number] [place] [id number] Professio [phone] nal 044 [address] [facility] 2020-04-18 2020-04-18 Outpatient R [facility] [id number] Univers 18:30:00 18:30:00 [id number] [facility] 2020-04-18 2020-04-18 Outpatient R KHANH [facility] [id number] Univers 18:30:00 18:30:00 DEBBY [facility] 2020-04-15 2020-04-15 Outpatient [facility]MLC [facility] [id number] [facility] 2020-04-14 2020-04-14 Outpatient [facility]LMLC [facility] [id number] [facility] 2020-04-14 2020-04-14 Outpatient [facility]MLC [facility] [id number] [facility] 2020-02-25 2020-02-25 Laboratory Lab, [facility] [id number] 16:45:09 17:05:09 Only Fam [facility] [id number] [place] [id number] Professio [phone] nal 044 [address] [facility] 2020-02-25 2020-02-25 Outpatient R [facility] [id number] Univers 17:00:00 17:00:00 [id number] [facility] 2020-02-25 2020-02-25 Outpatient Fadumo UNGER [facility] [id number] Univers 17:00:00 17:00:00 INGE euceda [facility] 2020-02-03 2020-02-03 [facility] [id number] [facility] 2020 [facility] [id number] [facility]00 [facility] Outpati ent Clinics 2019-10-21 2019-10-21 RIAN Quintero [id number] 00:00:00 00:00:00 Inge BRIGHT [id number] [facility] [id number] 2019-10-18 2019-10-18 Laboratory Lab, [facility] [id number] 14:38:20 14:58:20 Only Fam b [facility] [id number] [place] [id number] Professio [phone] nal 044 [address] 2019-10-18 2019-10-18 Outpatient Fadumo UNGER [facility] [id number] Univers 14:20:00 14:20:00 INGE euceda [facility] 2018-06-28 2018-06-28 [facility] [id number] [facility] [facility] 13:15:00 13:15:00 t [facility] Out[facility] Clin[facility] 2017-09-05 2017-09-05 [facility] [id number] [facility] 07:47:00 07:47:00 t [facility] 2017-08-29 2017-08-29 [facility] [id number] [facility] 14:30:00 14:30:00 t [facility] Results This patient has no known results.
== END 2021-06-28 21:34 | disposition home or self-care (01) ==
LOC: ER 18:42
DX: M54.12 Radiculopathy, cervical region (principal)
CPT/HCPCS: 70450; 72125; 96372; 99283

== ENCOUNTER 2021-12-30 13:17 | Emergency (ER) | payer BC ==
--- OUTSIDE RECORDS SUMMARY | 2021-12-30 13:21 | XMS REPORT | Continuity of Care Document ---
:1980 Author Organization [facility] t Address [address] [place] [address] Care Team Providers Name Role Phone PCP, PATIENT DOES NOT HAVE A Primary Care Physician Unavaila ble Chilo, Na L Attending Clinician Unavailable Jenn Weber Attending Clinician Unavailable Only, Ovidio Test Attending Clinician Unavailable Jc Welsh MD Attending Clinician JC WELSH Attending Clinician Unavailable Lab, Adc Fam Pob I Attending Clinician Unavailable RADHA AUGUST Attending Clinician Unavailable DEBBY CASSIDY Attending Clinician Unavailable INGE UNGER Attending Clinician Unavailable Inge Singh Attending Clinician Payers Payer Name Policy Type Policy Number Effective Date Expiration Date S ource Problems Condition Condition Condition Status Onset Resolution Last Treating Co mments Source Name Details Category Date Date Treatment Clinician Date Pelvic Pelvic Disease Active Univers inflammato inflammato 11-06 [place] [facility] H/O tubal H/O tubal Disease Active Uni vers ligation ligation 11-06 ity of 00:00: [address] Branch Contracept Contracept Disease Active U nivers camilla camilla 6-24 [place] of management [place] UTI UTI Disease Active Univers symptoms symptoms 09-15 ity of 00:00: [place] 00 Medical Branch S/P tubal S/P tubal Disease Active Uni vers ligation ligation 09-15 ity of 00:00: [place] 00 Medical Branch Allergies, Adverse Reactions, Alerts Allergy Allergy Status Severity Reaction(s) Onset Inactive Treating Comm ents Source Name Type Date Date Clinician NO KNOWN Drug Active Univers ALLERGIE Class ity of [facility] Social History Social Habit Start Date Stop Date Quantity Comments Source History SDOH [facility] [place] Alcohol Frequency Medical Branch History SDOH [facility] [place] Alcohol Std Drinks Medica l Branch History SDOH [facility] [place] Alcohol Binge Medical Bra [facility] Alcohol intake 2015-11-07 2015-11-07 0 /d [facility] 00:00:00 00:00:00 Medical Branch Alcohol Comment 2015-09-16 2015-09-16 socially [facility] 00:00:00 00:00:00 Medical Branch Sex Ass[birth year] At [birth year] [facility] 00:00:00 00:00:00 Medical Branch Smoking Status Start Date Stop Date Source Never smoker [facility] Medications Ordered Filled Start Stop Current Ordering Indication Dosage Frequency Signature Comments Components Source Medication Medication Date Date Medication? Clinician (SIG) Name Name Sai Lawjacob 2019- No Jenn as Com mon 06-28 [facility] directed Spiri t 00:00: 00:00 - CHI 00 :00 [facility] azithromyci Yes [id number] 500mg Take 1 Univers n 7-29 tablet by ity of (ZITHROMAX) 00:00: mouth [place] 500 mg 00 daily. Medical tablet Branch Fluconazole Fluconazole Yes Jenn 1 tablet Common [facility] Amoxicillin Amoxicillin Yes Jenn 1 tablet Common -Pot -Pot [facility] Clavulanate Clavulanate [facility] Procedures This patient has no known procedures. Encounters Start End Encounter Admission Attending Care Care Encounter Source Date/Time Date/Time Type Type Clinicians Facility Department ID 2021-05-05 [facility] [id number] Common 14:01:40 [id number] [facility] 2021-05-05 Outpatient Woo, Na STLMLC ST[facility] [id number] Common 13:39:08 [id number] [facility] 2021-05-05 Outpatient Woo, Na STLMLC ST[facility] [id number] Common 13:11:32 [id number] [facility] 2021-05-05 Outpatient Woo, Na STLMLC ST[facility] [id number] Common 13:05:16 [id number] [facility] 2021-05-05 Outpatient Woo, Na STLMLC STLMLC [id number] Common 12:37:00 [id number] [facility] 2021-05-05 Outpatient Woo, Na STLMLC STLMLC [id number] Common 12:36:25 [id number] [facility] 2021-05-05 Outpatient Woo, Na STLMLC STLMLC [id number] Common 12:27:26 [id number] [facility] 2021-05-05 Outpatient Woo, Na STLMLC STLMLC [id number] Common 12:17:50 [id number] [facility] 2021-05-05 Outpatient STLMLC STLMLC [id number] Common 12:17:29 [id number] [facility] 2021-05-05 Outpatient Millender, STLMLC STLMLC [id number] Common 11:53:48 Jenn [id number] [facility] 2021-07-30 2021-07-30 ambulatory STLMLC STLMLC [id number] Common 00:00:00 00:00:00 [facility] 2021-07-07 2021-07-07 ambulatory STLMLC STLMLC [id number] Common 00:00:00 00:00:00 [facility] 2021-07-05 2021-07-05 ambulatory STLMLC STLMLC [id number] Common 00:00:00 00:00:00 [facility] 2021-06-28 2021-06-28 ambulatory STLMLC STLMLC [id number] Common 00:00:00 00:00:00 [facility] 2021-04-09 2021-04-09 Laboratory Only, [facility] Test [facility] [id number] Univers 12:00:00 12:15:00 Only Jc Welsh [id number] [facility] [id number] [facility] [id number] [address] 2021-04-09 2021-04-09 Outpatient R [facility] [id number] Univers 12:00:00 12:00:00 [id number] [facility] 2021-04-09 2021-04-09 [facility] [id number] Univers 12:00:00 12:00:00 JC [facility] 2020-12-10 2020-12-10 Outpatient STLMLC STLMLC [id number] Common 00:00:00 00:00:00 [facility] 2020-11-25 2020-11-25 Outpatient STLMLC STLMLC [id number] Common 00:00:00 00:00:00 [facility] 2020-11-25 2020-11-25 Outpatient STLMLC STLMLC [id number] Common 00:00:00 00:00:00 [facility] 2020-09-15 2020-09-15 Outpatient STLMLC STLMLC [id number] Common 00:00:00 00:00:00 [facility] 2020-09-14 2020-09-14 Laboratory Lab, [facility] [id number] 09:14:03 09:34:03 Only [facility] [id number] [place] [id number] Professio [phone] nal [address] 2020-09-14 2020-09-14 Outpatient R [facility] [id number] Univers 09:00:00 09:00:00 [id number] [facility] 2020-09-14 2020-09-14 Out[facility] [id number] Univers 09:00:00 09:00:00 RADHA [facility] 2020-09-13 2020-09-13 Outpatient R [facility] [id number] Univers 12:40:00 12:40:00 [id number] [facility] 2020-09-13 2020-09-13 [facility] [id number] Univers 12:40:00 12:40:00 [facility] 2020-06-28 2020-06-28 Outpatient STLMLC STLMLC [id number] Common 00:00:00 00:00:00 [facility] 2020-06-16 2020-06-16 Outpatient STLMLC STLMLC [id number] Common 00:00:00 00:00:00 [facility] 2020-06-12 2020-06-12 Outpatient STLMLC STLMLC [id number] Common 00:00:00 00:00:00 [facility] 2020-05-20 2020-05-20 Outpatient STLMLC STLMLC [id number] Common 00:00:00 00:00:00 [facility] 2020-05-19 2020-05-19 Outpatient STLMLC STLMLC [id number] Common 00:00:00 00:00:00 [facility] 2020-05-03 2020-05-03 Laboratory Lab, [facility] [id number] 17:05:29 17:25:29 Only [facility] [id number] [place] [id number] Professio [phone] nal [address] 2020-05-03 2020-05-03 Outpatient R [facility] [id number] Univers 17:00:00 17:00:00 [id number] [facility] 2020-05-03 2020-05-03 Outpatient R KHANH, [facility] [id number] Univers 17:00:00 17:00:00 [facility] 2020-04-29 2020-04-29 Outpatient STLMLC STLMLC [id number] Common 00:00:00 00:00:00 [facility] 2020-04-23 2020-04-23 Outpatient STLMLC STLMLC [id number] Common 00:00:00 00:00:00 [facility] 2020-04-22 2020-04-22 [employer] Lab, [facility] [id number] 10:32:26 10:52:26 Visit Fam Pob I Health [id number] [place] [id number] Professio [id number] nal 0[address] 2020-04-22 2020-04-22 Outpatient R [facility] [id number] Univers 10:20:00 10:20:00 [id number] [facility] 2020-04-22 2020-04-22 Outpatient R UTE, [facility] [id number] Univers 10:20:00 10:20:00 INGE [facility] 2020-04-18 2020-04-18 Laboratory Lab, [facility] [id number] 18:27:17 18:47:17 Only [facility] [id number] [place] [id number] Professio [phone] [place] [id number] [address] 2020-04-18 2020-04-18 [facility] [id number] Univers 18:30:00 18:30:00 DEBBY [facility] 2020-04-18 2020-04-18 Outpatient R [facility] [id number] Univers 18:30:00 18:30:00 [id number] [facility] 2020-04-15 2020-04-15 Outpatient STLMLC STLMLC [id number] Common 00:00:00 00:00:00 [facility] 2020-04-14 2020-04-14 Outpatient STLMLC STLMLC [id number] Common 00:00:00 00:00:00 [facility] 2020-04-14 2020-04-14 Outpatient STLMLC STLMLC [id number] Common 00:00:00 00:00:00 [facility] 2020-02-25 2020-02-25 Laboratory Lab, [facility] [id number] 16:45:09 17:05:09 Only [facility] [id number] [place] [id number] Professio [id number] nal 0[address] 2020-02-25 2020-02-25 Outpatient R [facility] [id number] Univers 17:00:00 17:00:00 [id number] [facility] 2020-02-25 2020-02-25 [address] [facility] [id number] Univers 17:00:00 17:00:00 INGE [facility]uceda [facility] 2020-02-03 2020-02-03 Outpatient STLMLC STLMLC [id number] Common 00:00:00 00:00:00 [facility] 2020 2020 Outpatient STLMLC STLMLC [id number] Common 00:00:00 00:00:00 [facility] 2019-10-21 2019-10-21 Telephone RIAN Unger [id number] 00:00:00 00:00:00 Inge [facility] [id number] [facility] [id number] 2019-10-18 2019-10-18 Laboratory Lab, [facility] [id number] 14:38:20 14:58:20 Only [facility] [id number] [place] [id number] [facility] [phone] nal 0[address] 2019-10-18 2019-10-18 [facility] [id number] Univers 14:20:00 14:20:00 INGE [facility]uceda [facility] 2018-06-28 2018-06-28 Outpatient Juvenal Sanfordt [id number] Common 13:15:00 13:15:00 [facility] 2017-09-05 2017-09-05 [facility] [id number] Common 07:47:00 07:47:00 [facility] [address] [facility] 2017-08-29 2017-08-29 Outpatient Juvenal Bernal [id number] Common 14:30:00 14:30:00 [facility] it [facility] Results This patient has no known results.
[2021-12-30] MEDS ORDERED: CYCLOBENZAPRINE 10 MG TAB ONE (13:51)
[2021-12-30] MEDS ORDERED: IBUPROFEN 400 MG TAB ONE (13:51)
--- NOTE | 2021-12-30 14:15 | RAD REPORT ---
EXAM DESCRIPTION: Shoulder Right 2 View - 12/30/2021 1:59 pm CLINICAL HISTORY: PAIN COMPARISON: <Comparisons> TECHNIQUE: Internal and external rotation views of the right shoulder were obtained. FINDINGS: There is no fracture or dislocation. AC joint is normal in appearance. No acute or suspic ious findings. IMPRESSION: Negative two-view right shoulder examination.
--- NOTE | 2021-12-30 14:29 | ER ---
Nurse's Notes [facility] Name: Gracie Kinney Age: 41 yrs Sex: Female : 1980 Arrival Date: 12/30/2021 Time: 13:23 Bed 12 Private MD: Kendal Woo Diagnosis: Muscle spasm;Pain in right shoulder Presentation: 12/30 13:32 Chief complaint: Patient states: I have been doing kick boxing lately and I started bm7 having bad back pain going down into my arm. Coronavirus screen: At this time, the client does not indicate any symptoms associated with coronavirus-19. Ebola Screen: No symptoms or risks identified at this time. Initial Sepsis Screen: Does the patient meet any 2 criteria? No. Patient's initial sepsis screen is negative. Does the patient have a suspected source of infection? No. Patient's initial sepsis screen is negative. Risk Assessment: Do you want to hurt yourself or someone else? Patient reports no desire to harm self or others. Onset of symptoms is unknown. 13:32 Method Of Arrival: Ambulatory 7 13:32 Acuity: FLASH 3 bm7 Triage Assessment: 13:36 General: Appears in no apparent distress. comfortable, Behavior is calm, cooperative, bm7 appropriate for age. Pain: Complains of pain in back. EENT: No deficits noted. No signs and/or symptoms were reported regarding the EENT system. Neuro: No deficits noted. Cardiovascular: No deficits noted. Respiratory: No deficits noted. GI: No deficits noted. No signs and/or symptoms were reported involving the gastrointestinal system. : No deficits noted. No signs and/or symptoms were reported regarding the genitourinary system. Derm: No deficits noted. No signs and/or symptoms reported regarding the dermatologic system. Musculoskeletal: Reports pain in back. SNUFF BLENDER: 13:36 LMP 12/09/2021 bm7 Historical: - Allergies: 13:36 "migraine medication"; bm7 - Home Meds: 13:36 None [Active]; bm7 - PMHx: 13:36 None; bm7 - PSHx: 13:36 Cholecystectomy; tubal ligation; bm7 - Immunization history:: Adult Immunizations up to date. - Social history:: Smoking status: Patient denies any tobacco usage or history of. Screenin:33 Abuse screen: Denies threats or abuse. Nutritional screening: No deficits noted. bm7 Tuberculosis screening: No symptoms or risk factors identified. Fall Risk None identified. Assessment: 14:33 Reassessment: No changes from previously documented assessment. bm7 Vital Signs: 13:32 BP 117 / 71; Pulse 89; Resp 16; Temp 98.2(TE); Pulse Ox 99% on R/A; Weight 77.11 kg bm7 (R); Height 5 ft. 2 in. (157.48 cm); Pain 10/10; 13:32 Body Mass Index 31.09 (77.11 kg, 157.48 cm) bm7 ED Course: 13:23 Patient arrived in ED. am2 13:24 Kendal Woo MD is Private Physician. am2 13:29 [facility] Almanzar [facility] jh7 13:29 Misael Avina MD is Attending Physician. 7 13:32 Genna Remy, RN is Primary Nurse. bm7 13:36 Triage completed. bm7 13:36 Arm band placed on right wrist. bm7 14:00 XRAY Shoulder RIGHT 2 view In Process Unspecified. EDMS 14:09 Patient moved back from radiology. bm7 14:27 Kendal Woo MD is Referral Physician. 7 14:33 Patient has correct armband on for positive identification. Call light in reach. bm7 14:33 No provider procedures requiring assistance completed. Patient did not have IV access bm7 during this emergency room visit. Administered Medications: 13:43 Drug: Ibuprofen 600 mg Route: PO; bm7 14:34 Follow up: Response: Pain is decreased bm7 13:43 Drug: Flexeril (cyclobenzaprine) 10 mg Route: PO; bm7 14:34 Follow up: Response: No adverse reaction bm7 Medication: 14:33 VIS not applicable for this client. bm7 Outcome: 14:28 Discharge ordered by . 7 14:33 Discharged to home ambulatory. bm7 14:33 Condition: good 14:33 Discharge instructions given to patient, family, Instructed on discharge instructions, follow up and referral plans. medication usage, Demonstrated understanding of instructions, follow-up care, medications, Prescriptions given X 2. 14:35 Patient left the ED. 7 Signatures: Dispatcher [employer] EDFL Meryl Woodruff am2 Genna Remy, RN RN bm7 Magui Almanzar, FALL INTERN FALL INTERN jh7
--- NOTE | 2021-12-30 14:29 | EDPHYS ---
Physician Documentation [facility] Name: Gracie Kinney Age: 41 yrs Sex: Female : 1980 Arrival Date: 12/30/2021 Time: 13:23 Bed 12 Private MD: Kendal Woo ED Physician Misael Avina HPI: 12/30 13:40 This 41 yrs old Female presents to ER via Ambulatory with complaints of jh7 Shoulder Pain. 13:40 The patient or guardian complains of pain, that is chronic. right shoulder. Onset: The jh7 symptoms/episode began/occurred 1 month(s) ago, and became worse yesterday. Reports right shoulder pain for over a month with no known injury. Reports that sometimes the pain and spasms down her right arm.. 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 - Social history:: Smoking status: Patient denies any tobacco usage or history of. ROS: 13:40 Constitutional: Negative for fever, chills, and weight loss, Neck: Negative for injury, jh7 pain, and swelling, Cardiovascular: Negative for chest pain, palpitations, and edema, Respiratory: Negative for shortness of breath, cough, wheezing, and pleuritic chest pain, Back: Negative for injury and pain, Skin: Negative for injury, rash, and discoloration, Neuro: Negative for headache, weakness, numbness, tingling, and seizure. 13:40 MS/extremity: Positive for pain, Negative for injury or acute deformity, decreased range of motion, swelling, tenderness. 13:40 All other systems are negative. Exam: 13:40 Constitutional: This is a well developed, well nourished patient who is awake, alert, jh7 and in no acute distress. Head/Face: Normocephalic, atraumatic. Neck: Trachea midline, no thyromegaly or masses palpated, and no cervical lymphadenopathy. Supple, full range of motion without nuchal rigidity, or vertebral point tenderness. No Meningismus. Cardiovascular: Regular rate and rhythm with a normal S1 and S2. No gallops, murmurs, or rubs. Normal PMI, no JVD. No pulse deficits. Respiratory: Lungs have equal breath sounds bilaterally, clear to auscultation and percussion. No rales, rhonchi or wheezes noted. No increased work of breathing, no retractions or nasal flaring. Back: No spinal tenderness. No costovertebral tenderness. Full range of motion. Skin: Warm, dry with normal turgor. Normal color with no rashes, no lesions, and no evidence of cellulitis. Neuro: Awake and alert, GCS 15, oriented to person, place, time, and situation. Motor strength 5/5 in all extremities. Sensory grossly intact. Normal gait. 13:40 Musculoskeletal/extremity: ROM: intact in all extremities, Circulation is intact in all extremities. Sensation intact. Posterior shoulder pain elicited by abduction beyond 90 degrees with no tenderness to palpation.. Vital Signs: 13:32 BP 117 / 71; Pulse 89; Resp 16; Temp 98.2(TE); Pulse Ox 99% on R/A; Weight 77.11 kg [facility] (R); Height 5 ft. 2 in. (157.48 cm); Pain 10/10; 13:32 Body Mass Index 31.09 (77.11 kg, 157.48 cm) [facility] MDM: 13:29 Patient medically screened. [facility] 14:35 Differential diagnosis: tendonitis. Data reviewed: vital signs, nurses notes, [facility] radiologic studies, plain films. Data interpreted: Pulse oximetry: is 99 %. Interpretation: normal. Counseling: I had a detailed discussion with the patient and/or guardian regarding: the historical points, exam findings, and any diagnostic results supporting the discharge/admit diagnosis, to return to the emergency department if symptoms worsen or persist or if there are any questions or concerns that arise at home. 12/30 13:34 Order name: XRAY Shoulder RIGHT 2 view; Complete Time: 14:24 [facility] Administered Medications: 13:43 Drug: Ibuprofen 600 mg Route: PO; [facility] 14:34 Follow up: Response: Pain is decreased [facility] 13:43 Drug: Flexeril (cyclobenzaprine) 10 mg Route: PO; [facility] 14:34 Follow up: Response: No adverse reaction bm7 Disposition Summary: 12/30/21 14:28 Discharge Ordered Location: Home [facility] Problem: new [facility] Symptoms: have improved [facility] Condition: Stable [facility] Diagnosis - Muscle spasm 7 - Pain in right shoulder [facility] Followup: [facility] - With: Kendal Woo MD - When: 2 - 3 days - Reason: Recheck today's complaints Discharge Instructions: - Discharge Summary Sheet [facility] - Musculoskeletal Pain [facility] - Shoulder Pain [facility] Forms: - Medication Reconciliation Form [facility] - Thank You Letter [facility] Prescriptions: - Naprosyn 500 mg Oral Tablet - take 1 tablet by ORAL route 2 times per day take with food; 30 tablet; Refills: jh7 0, Product Selection Permitted - Zanaflex 4 mg Oral Tablet - take 1 tablet by ORAL route every 8 hours As needed; 20 tablet; Refills: 0, jh7 Product Selection Permitted Signatures: Dispatcher [employer] Genna Johnston RN RN 7 Magui Almanzar FNP FNP [facility]
[2022-01-01 04:59] VITALS: BP 117/71; TEMP 98.2; O2SAT 99
== END 2021-12-30 14:35 | disposition home or self-care (01) ==
LOC: ER 13:17
DX: M62.838 Other muscle spasm (principal); M25.511 Pain in right shoulder
CPT/HCPCS: 99283